=== PATIENT | female | born 1985 | race American Indian/Alaskan Native ===

== ENCOUNTER 2021-06-28 00:49 | Emergency (ER) | payer SELFPAY ==
[~2021-06-28] VITALS: Ht 162.6 cm; Wt 122.0 kg
[2021-06-28] MEDS ORDERED: ACETAMINOPHEN 325MG TABLET PO ONE (01:30)
[2021-06-28 01:44] LABS: CLARITY URINE CLOUDY (CLEAR); COLOR URINE YELLOW (YELLOW); KETONES URINE TRACE (NEGATIVE); LEUKOCYTE ESTERASE URINE TRACE (NEGATIVE); NITRITE URINE NEGATIVE (NEGATIVE); OCCULT BLOOD URINE TRACE (NEGATIVE); PROTEIN URINE NEGATIVE (NEGATIVE); SPECIFIC GRAVITY URINE 1.033 (1.005-1.030)
[2021-06-28] MEDS ORDERED: IBUPROFEN 800MG TABLET PO ONE (01:45)
[2021-06-28] MEDS ORDERED: ONDANSETRON 4MG ODT PO ONE (01:45)
[2021-06-28 01:56] LABS: *COCAINE SCREEN URINE NEGATIVE (NEGATIVE); METHADONE URINE SCREEN NEGATIVE (NEGATIVE)
[2021-06-28 01:57] LABS: *AMPHETAMINES SCREEN URINE NEGATIVE (NEGATIVE); *BARBITURATES SCREEN URINE NEGATIVE (NEGATIVE); *BENZODIAZEPINES SCREEN URINE NEGATIVE (NEGATIVE); CANNABINOID URINE SCREEN NEGATIVE (NEGATIVE); PHENCYCLIDINE URINE SCREEN NEGATIVE (NEGATIVE)
[2021-06-28 01:58] LABS: OPIATES URINE SCREEN PRESUMTIVE POSITIVE (NEGATIVE)
[2021-06-28 02:57] VITALS: BP 111/55
== END 2021-06-28 03:41 | disposition left against medical advice (07) ==
LOC: ER 00:49
DX: E28.2 Polycystic ovarian syndrome (principal); J45.909 Unspecified asthma, uncomplicated; Z13.9 Encounter for screening, unspecified; Z98.890 Other specified postprocedural states; Z88.6 Allergy status to analgesic agent; Z88.5 Allergy status to narcotic agent
CPT/HCPCS: 76830; 76856; 80305; 81003; 81025; 99284; Q0162

== ENCOUNTER 2022-08-28 17:40 | Inpatient (IN) | payer MEDICARE, MEDICAID ==
[~2022-08-28] VITALS: Ht 162.6 cm; Wt 115.7 kg
[2022-08-28] MEDS ORDERED: SODIUM CHLORIDE 0.9% 1,000 ML IV ONE (23:45)
[2022-08-29 00:41] LABS: CHLORIDE 108 mEq/L (98-107)
[2022-08-29] MEDS ORDERED: MORPHINE SULFATE 4 MG/ML CPJ (NOT FOR IM USE) IV ONE (01:30)
[2022-08-29] MEDS ORDERED: ONDANSETRON HCL 4MG/2ML INJ IV ONE (01:30)
[2022-08-29 01:50] LABS: CLARITY URINE CLOUDY (CLEAR); COLOR URINE DARK YELLOW (YELLOW); KETONES URINE TRACE (NEGATIVE); LEUKOCYTE ESTERASE URINE NEGATIVE (NEGATIVE); NITRITE URINE NEGATIVE (NEGATIVE); OCCULT BLOOD URINE TRACE (NEGATIVE); PH URINE 6.5 (4.5-8.0); PROTEIN URINE TRACE (NEGATIVE); SPECIFIC GRAVITY URINE 1.025 (1.005-1.030)
[2022-08-29 02:29] LABS: *AMPHETAMINES SCREEN URINE NEGATIVE (NEGATIVE); *BARBITURATES SCREEN URINE NEGATIVE (NEGATIVE); *BENZODIAZEPINES SCREEN URINE NEGATIVE (NEGATIVE); *COCAINE SCREEN URINE NEGATIVE (NEGATIVE); METHADONE URINE SCREEN NEGATIVE (NEGATIVE); PHENCYCLIDINE URINE SCREEN NEGATIVE (NEGATIVE)
[2022-08-29 02:37] LABS: CANNABINOID URINE SCREEN PRESUMTIVE POSITIVE (NEGATIVE); OPIATES URINE SCREEN PRESUMTIVE POSITIVE (NEGATIVE)
[2022-08-29] MEDS ORDERED: HYDROMORPHONE HCL/PF 2MG/ML CPJ IV ONE ×2 (03:45→11:00)
[2022-08-29 03:46] LABS: BASOPHILS % 0.1 % (0.0-2.0); EOSINOPHILS % 0.2 % (0.0-5.0); HEMATOCRIT. 26.4 % (36.0-48.0); HEMOGLOBIN. 8.4 g/dL (12.0-16.0); LYMPHOCYTES % 15.1 % (20.0-50.0); MEAN CORPUSCULAR HEMOGLOBIN 26.5 pg (28.0-32.0); MEAN CORPUSCULAR VOLUME 83.1 fL (81.0-99.0); MEAN PLATELET VOLUME 7.4 fl (7.4-10.4); MONOCYTES % 11.2 % (2.0-8.0); NEUTROPHILS % 73.4 % (40.0-76.0); PLATELET 149 x1000/uL (130-400); RED BLOOD CELL COUNT 3.17 mill/uL (4.2-5.4); RED CELL DISTRIBUTION WIDTH 20.3 % (11.6-14.6)
[2022-08-29 04:04] LABS: PROTHROMBIN TIME 10.9 sec (9.6-11.0)
[2022-08-29 04:07] LABS: HCG SCREEN NEGATIVE
[2022-08-29] MEDS ORDERED: DIPHENHYDRAMINE 50MG/ML VIAL IV ONE ×2 (04:15→11:00)
[2022-08-29] MEDS ORDERED: ONDANSETRON HCL 4MG/2ML INJ IV NR (04:30)
[2022-08-29] MEDS ORDERED: HYDROMORPHONE HCL/PF 2MG/ML CPJ IV PRN (06:15)
[2022-08-29] MEDS ORDERED: DIPHENHYDRAMINE 50MG/ML VIAL IV PRN (14:30)
[2022-08-29] MEDS ORDERED: CLONIDINE 0.1MG TABLET PO PRN (14:30)
[2022-08-29] MEDS ORDERED: MAGNESIUM/ALUMINUM HYDROXIDE/SIMETHICONE 30ML UDC PO PRN (14:30)
[2022-08-29] MEDS ORDERED: DOCUSATE SODIUM 100MG CAPSULE PO PRN (14:30)
[2022-08-29] MEDS ORDERED: HYDR500C18 PO (15:00)
[2022-08-29] MEDS: HYDROMORPHONE HCL/PF 2MG/ML CPJ IV PRN ×2 (15:27→21:09)
[2022-08-29] MEDS ORDERED: NALOXONE HCL 0.4MG/ML VIAL IV PRN (15:45)
[2022-08-29 15:50] LABS: BG BASE EXCESS 0.7 mmol/L (-2.0-2.0); BG CARBOXYHEMOGLOBIN 0.3 % (0.5-1.5); BG DEOXYHEMOGLOBIN 4.3 % (0.0-5.0); BG FRACTION INSPIRED OXYGEN 21; BG HCO3 ACT 24.9 mmol/L (22.0-26.0); BG METHEMOGLOBIN 0.5 % (0.0-1.5); BG OXYGEN SATURATION 95.7 % (92.0-98.5); BG OXYHEMOGLOBIN 94.9 % (94.0-97.0); BG PCO2 38.1 mmHg (35.0-45.0); BG PH 7.433 (7.350-7.450); BG PO2 83.9 mmHg (75.0-100.0); BG SAMPLE SITE RIGHT BRACHIAL; BG TOTAL HEMOGLOBIN 9.8 g/dL (12.0-18.0); BG VENT MODE ROOM AIR
[2022-08-29 16:18] VITALS: BP 128/64
[2022-08-29] MEDS ORDERED: MORPHINE SULFATE 2 MG/ML CPJ (NOT FOR IM USE) IV PRN (16:30)
[2022-08-29] MEDS ORDERED: DIPHENHYDRAMINE 25MG CAPSULE PO PRN (16:30)
[2022-08-29] MEDS: HYDROXYUREA 500MG CAPSULE PO SCH (18:29)
[2022-08-29 20:30] VITALS: BP 107/63
[2022-08-29] MEDS ORDERED: ENOXAPARIN 40MG/0.4ML SYR SUBCUT SCH (21:00)
[2022-08-29] MEDS: SODIUM CHLORIDE 0.45% 1,000 ML IV SCH (21:00)
[2022-08-29] MEDS: FAMOTIDINE 20MG TABLET PO SCH (21:01)
[2022-08-30] VITALS: BP 118/72
[2022-08-30] MEDS: HYDROMORPHONE HCL/PF 2MG/ML CPJ IV PRN ×3 (01:47→12:22)
[2022-08-30 04:00] VITALS: BP 123/70
[2022-08-30] MEDS: SODIUM CHLORIDE 0.45% 1,000 ML IV SCH ×2 (04:37→17:02)
[2022-08-30 08:00] VITALS: BP 119/69
[2022-08-30] MEDS: FAMOTIDINE 20MG TABLET PO SCH ×2 (10:40→22:03)
[2022-08-30] MEDS: FOLIC ACID 1MG TABLET PO SCH (10:40)
[2022-08-30] MEDS: HYDROXYUREA 500MG CAPSULE PO SCH ×2 (10:41→17:15)
[2022-08-30 12:00] VITALS: BP 121/72
[2022-08-30] MEDS ORDERED: HYDROMORPHONE HCL 2MG TABLET PO PRN (13:15)
[2022-08-30 15:29] LABS: BASOPHILS % 0.2 % (0.0-2.0); EOSINOPHILS % 0.6 % (0.0-5.0); HEMATOCRIT. 29.6 % (36.0-48.0); HEMOGLOBIN. 9.5 g/dL (12.0-16.0); LYMPHOCYTES % 17.3 % (20.0-50.0); MEAN CORPUSCULAR HEMOGLOBIN 26.5 pg (28.0-32.0); MEAN CORPUSCULAR VOLUME 82.3 fL (81.0-99.0); MEAN PLATELET VOLUME 7.2 fl (7.4-10.4); MONOCYTES % 9.2 % (2.0-8.0); NEUTROPHILS % 72.7 % (40.0-76.0); PLATELET 162 x1000/uL (130-400); RED CELL DISTRIBUTION WIDTH 20.1 % (11.6-14.6)
[2022-08-30 15:54] LABS: HDL CHOLESTEROL 54 mg/dL (40-59); LDL CHOLESTEROL 89 mg/dL (5-100); T4 FREE 1.03 ng/dL (0.76-1.46)
[2022-08-30 16:00] VITALS: BP 117/67
[2022-08-30 16:26] LABS: CHLORIDE 105 mEq/L (98-107)
[2022-08-30] MEDS: ENOXAPARIN 30MG/0.3ML SYR SUBCUT SCH (17:16)
[2022-08-30 20:00] VITALS: BP 124/67
[2022-08-30] MEDS: HYDROMORPHONE HCL 2MG TABLET PO PRN (22:04)
[2022-08-31] VITALS: BP 118/66
[2022-08-31 04:00] VITALS: BP 131/77
[2022-08-31] MEDS: ENOXAPARIN 30MG/0.3ML SYR SUBCUT SCH ×2 (04:13→16:00)
[2022-08-31] MEDS: HYDROMORPHONE HCL 2MG TABLET PO PRN ×5 (04:14→22:41)
[2022-08-31] MEDS: SODIUM CHLORIDE 0.45% 1,000 ML IV SCH ×2 (06:44→19:50)
[2022-08-31 08:00] VITALS: BP 145/50
[2022-08-31] MEDS: ONDANSETRON HCL 4MG/2ML INJ IV PRN (08:30)
[2022-08-31] MEDS: ACETAMINOPHEN 325MG TABLET PO PRN ×2 (09:03→15:18)
[2022-08-31] MEDS: HYDROXYUREA 500MG CAPSULE PO SCH ×2 (09:06→18:24)
[2022-08-31] MEDS: FAMOTIDINE 20MG TABLET PO SCH ×2 (09:06→20:42)
[2022-08-31] MEDS ORDERED: GUAIFENESIN 200MG/10ML SUGAR FREE UDC PO PRN (09:30)
[2022-08-31 12:00] VITALS: BP 119/74
[2022-08-31] MEDS: FOLIC ACID 1MG TABLET PO SCH (15:18)
[2022-08-31 16:00] VITALS: BP 127/73
[2022-08-31 20:00] VITALS: BP 112/64
[2022-09-01] VITALS: BP 109/58
[2022-09-01] MEDS: ACETAMINOPHEN 325MG TABLET PO PRN ×2 (00:03→06:32)
[2022-09-01 00:36] LABS: BASOPHILS % 0.2 % (0.0-2.0); EOSINOPHILS % 0.3 % (0.0-5.0); HEMATOCRIT. 32.3 % (36.0-48.0); HEMOGLOBIN. 10.4 g/dL (12.0-16.0); LYMPHOCYTES % 7.6 % (20.0-50.0); MEAN CORPUSCULAR VOLUME 83.5 fL (81.0-99.0); MEAN PLATELET VOLUME 7.4 fl (7.4-10.4); NEUTROPHILS % 85.9 % (40.0-76.0); PLATELET 110 x1000/uL (130-400); RED BLOOD CELL COUNT 3.87 mill/uL (4.2-5.4); RED CELL DISTRIBUTION WIDTH 20.4 % (11.6-14.6)
[2022-09-01 01:03] LABS: CHLORIDE 104 mEq/L (98-107)
[2022-09-01] MEDS: HYDROMORPHONE HCL 2MG TABLET PO PRN (02:44)
[2022-09-01 03:17] LABS: CLARITY URINE CLEAR (CLEAR); COLOR URINE DARK YELLOW (YELLOW); KETONES URINE 1+ (NEGATIVE); LEUKOCYTE ESTERASE URINE TRACE (NEGATIVE); NITRITE URINE NEGATIVE (NEGATIVE); OCCULT BLOOD URINE NEGATIVE (NEGATIVE); PROTEIN URINE TRACE (NEGATIVE)
[2022-09-01 04:00] VITALS: BP 105/61
[2022-09-01] MEDS: ENOXAPARIN 30MG/0.3ML SYR SUBCUT SCH ×2 (04:00→15:43)
[2022-09-01 08:00] VITALS: BP 122/69
[2022-09-01] MEDS ORDERED: LIDOCAINE HCL 1% 30ML VIAL (10MG/ML) ONE (09:14)
[2022-09-01] MEDS ORDERED: PIPERACILLIN/TAZOBACTAM 3.375 G in DEXTROSE 5% WATER 50 ML IV NR (10:00)
[2022-09-01] MEDS ORDERED: HYDROCODONE/ACETAMINOPHEN 7.5/325MG TABLET PO PRN (10:30)
[2022-09-01] MEDS: FOLIC ACID 1MG TABLET PO SCH (10:40)
[2022-09-01] MEDS: FAMOTIDINE 20MG TABLET PO SCH ×2 (10:40→20:52)
[2022-09-01] MEDS: HYDROXYUREA 500MG CAPSULE PO SCH ×2 (10:40→16:45)
[2022-09-01] MEDS ORDERED: VANCOMYCIN 1500MG in DEXTROSE 5% WATER 250ML IV NR (11:00)
[2022-09-01 12:00] VITALS: BP 129/73
[2022-09-01 12:08] LABS: HEMATOCRIT 29.5 % (36.0-48.0); HEMOGLOBIN 9.4 g/dL (12.0-16.0); MEAN CORPUSCULAR HEMOGLOBIN 26.1 pg (28.0-32.0); MEAN CORPUSCULAR VOLUME 81.7 fL (81.0-99.0); PLATELET 127 x1000/uL (130-400); RED BLOOD CELL COUNT 3.61 mill/uL (4.2-5.4); RED CELL DISTRIBUTION WIDTH 19.5 % (11.6-14.6)
[2022-09-01 12:23] LABS: D-DIMER 2.02 mg/L FEU (<0.50)
[2022-09-01] MEDS: SODIUM CHLORIDE 0.45% 1,000 ML IV SCH ×2 (12:24→22:39)
[2022-09-01 12:33] LABS: CHLORIDE 103 mEq/L (98-107)
[2022-09-01] MEDS: PIPERACILLIN/TAZOBACTAM 3.375 G in DEXTROSE 5% WATER 50 ML IV SCH ×2 (14:15→22:39)
[2022-09-01] MEDS: HYDROCODONE/ACETAMINOPHEN 5/325MG TABLET PO PRN ×2 (14:37→20:53)
[2022-09-01] MEDS ORDERED: THROAT LOZENGES-BENZOCAINE/MENTH/CETYLPYRD CL LOZENGES MM PRN (15:00)
[2022-09-01 16:00] VITALS: BP 118/69
[2022-09-01] MEDS ORDERED: VANCOMYCIN 1250MG in DEXTROSE 5% WATER 250ML IV SCH (18:00)
[2022-09-01] MEDS: VANCOMYCIN 1250MG in DEXTROSE 5% WATER 250ML IV SCH (20:56)
[2022-09-02] MEDS: HYDROCODONE/ACETAMINOPHEN 10/325MG TABLET PO PRN ×2 (01:47→09:45)
[2022-09-02] MEDS: VANCOMYCIN 1250MG in DEXTROSE 5% WATER 250ML IV SCH (03:16)
[2022-09-02] MEDS: ENOXAPARIN 30MG/0.3ML SYR SUBCUT SCH ×3 (04:00→15:31)
[2022-09-02] MEDS: PIPERACILLIN/TAZOBACTAM 3.375 G in DEXTROSE 5% WATER 50 ML IV SCH ×3 (05:15→22:00)
[2022-09-02 08:00] VITALS: BP 132/82
[2022-09-02] MEDS: HYDROXYUREA 500MG CAPSULE PO SCH ×2 (09:17→16:16)
[2022-09-02] MEDS: FAMOTIDINE 20MG TABLET PO SCH ×2 (09:18→20:05)
[2022-09-02] MEDS: FOLIC ACID 1MG TABLET PO SCH (09:18)
[2022-09-02] MEDS: ONDANSETRON HCL 4MG/2ML INJ IV PRN ×2 (09:59→20:10)
[2022-09-02 12:00] VITALS: BP 137/82
[2022-09-02 12:02] LABS: BASOPHILS % 0.1 % (0.0-2.0); EOSINOPHILS % 0.6 % (0.0-5.0); HEMATOCRIT. 27.6 % (36.0-48.0); HEMOGLOBIN. 9.1 g/dL (12.0-16.0); LYMPHOCYTES % 9.7 % (20.0-50.0); MEAN CORPUSCULAR HEMOGLOBIN 26.5 pg (28.0-32.0); MEAN CORPUSCULAR VOLUME 80.6 fL (81.0-99.0); MEAN PLATELET VOLUME 7.7 fl (7.4-10.4); MONOCYTES % 10.1 % (2.0-8.0); NEUTROPHILS % 79.5 % (40.0-76.0); PLATELET 122 x1000/uL (130-400); RED BLOOD CELL COUNT 3.42 mill/uL (4.2-5.4); RED CELL DISTRIBUTION WIDTH 19.8 % (11.6-14.6)
[2022-09-02 12:09] LABS: CHLORIDE 104 mEq/L (98-107)
[2022-09-02] MEDS: SODIUM CHLORIDE 0.45% 1,000 ML IV SCH (12:18)
[2022-09-02 12:43] LABS: HAPTOGLOBIN 334 mg/dL (30-200)
[2022-09-02] MEDS: HYDROMORPHONE HCL 2MG TABLET PO PRN ×2 (15:28→20:06)
[2022-09-02] MEDS: VANCOMYCIN 1G PREMIX 200 ML IV SCH ×2 (15:28→21:10)
[2022-09-02] MEDS ORDERED: AMOX1TAB16 PO ×3 (19:23→19:41)
[2022-09-02 20:00] VITALS: BP 121/77
[2022-09-02 22:06] VITALS: BP 121/77
[2022-09-02] MEDS ORDERED: IOHEXOL-300 100 ML BOTTLE ONE (23:28)
[2022-09-03 07:10] LABS: HIV SCREEN 4G Non Reactive (Non Reactive)
[2022-09-04 06:11] LABS: HGB A2 2.3 % (1.8-3.2); HGB F 0.4 % (0.0-2.0)
== END 2022-09-02 23:45 | disposition home or self-care (01) | DRG 872 ==
LOC: ER 17:40 → 6EST 08-29 12:55 → EDBEDREQ 08-29 13:26 → ENRESERV 08-29 13:43 → 6EST 08-29 15:01
PROVIDERS: ADMIT Internal Medicine; ATTEND Internal Medicine
PROC: 05HM33Z Insertion of Infusion Device into Right Internal Jugular Vein, Percutaneous Approach (ICD-10-PCS; principal; 2022-09-01)
PROC: B543ZZA Ultrasonography of Right Jugular Veins, Guidance (ICD-10-PCS; 2022-09-01)
DX: A41.89 Other specified sepsis (principal); D57.3 Sickle-cell trait; B97.4 Respiratory syncytial virus as the cause of diseases classified elsewhere; J45.909 Unspecified asthma, uncomplicated; K59.00 Constipation, unspecified; D64.9 Anemia, unspecified; F19.10 Other psychoactive substance abuse, uncomplicated; Z20.822 Contact with and (suspected) exposure to COVID-19; Z88.5 Allergy status to narcotic agent; Z88.6 Allergy status to analgesic agent
CPT/HCPCS: 36415; 36600; 71045; 71260; 74177; 76700; 76937; 80053; 80061; 80202; 80305; 81003; 82375; 82805; 83010; 83021; 83036; 83605; 83615; 83735; 84100; 84145; 84439; 84443; 84703; 85025; 85027; 85044; 85379; 85384; 85651; 85660; 86850; 86900; 86920; 87389; 87420; 87426; 87804; 93005; 93970; 97161; 99285; C1725; C1887; J1170; J1200; J1650; J2270; J2405; J2543; J3370; J3490; J7030; J7060; Q0163; Q9967